=== PATIENT | male | born 1945 | race Native Hawaiian/Other Pacific Islander ===

== ENCOUNTER 2022-09-24 09:55 | Emergency (ER) | payer OTHER, BC ==
[~2022-09-24] VITALS: Ht 177.8 cm; Wt 100.2 kg
[2022-09-24 09:55] VITALS: TEMP 97
[2022-09-24] MEDS ORDERED: ASPIRIN 81 LOW81 MG PO (10:10)
[2022-09-24] MEDS ORDERED: METO50TA63 PO (10:10)
[2022-09-24] MEDS ORDERED: VALSARTAN160 MG PO (10:11)
[2022-09-24] MEDS ORDERED: VIAGRA100 MG PO (10:12)
[2022-09-24] MEDS ORDERED: CIALIS5 MG PO ×2 (10:13→10:15)
[2022-09-24 10:23] LABS: PLATELET COUNT 196 K/uL (142-355)
[2022-09-24 10:54] LABS: PARTIAL THROMBOPLASTIN TIME 28.3 SECONDS (24.5-33.6)
[2022-09-24 14:30] VITALS: BP 135/81
== END 2022-09-24 15:31 | disposition short-term general hospital (02) ==
LOC: ED 09:55
PROVIDERS: Emergency Medicine Emergency Medical Services
DX: I48.20 Chronic atrial fibrillation, unspecified (principal)
CPT/HCPCS: 80053; 83735; 83880; 84484; 85027; 85379; 85610; 85730; 93005; 96361; 96365; 96366; 96375; 99284; J1644; J3490

== ENCOUNTER 2022-11-23 12:31 | Outpatient (CLI) | payer OTHER, BC ==
[~2022-11-23 12:31] MED LIST: ASPIRIN 81 LOW81 MG PO; CIALIS5 MG PO; METO50TA63 PO; VALSARTAN160 MG PO; VIAGRA100 MG PO
[2022-11-23 13:05] LABS: PLATELET COUNT 184 K/uL (142-355)
[2022-11-23 13:09] LABS: POTASSIUM 4.3 mmol/L (3.6-5.2)
== END 2022-11-23 23:38 | disposition home or self-care (01) ==
LOC: LAB 12:31
PROVIDERS: ATTEND Nurse Practitioner Gerontology
DX: I48.91 Unspecified atrial fibrillation (principal)
CPT/HCPCS: 80048; 85027